=== PATIENT | male | born 1985 | race Hispanic/Latino ===

== ENCOUNTER 2023-03-31 07:11 | Emergency (ER) | payer SELFPAY ==
[2023-03-31 07:14] VITALS: BP 129/74; PULSE 79; RESP 18; TEMP 36.6; O2SAT 99
--- NOTE | 2023-03-31 09:29 | ED.SKABFB ---
HPI - Skin/Abscess/Foreign Bdy General Chief complaint: Skin/Abscess/Foreign Body Stated complaint: Rash Time Seen by Provider: 03/31/23 07:27 Source: patient and RN notes reviewed Mode of arrival: ambulatory Limitations: language barrier History of Present Illness HPI narrative: This is a 38 year old healthy male who presents for evaluation of rash. He states he developed rash on Tuesday . The rash started on his face, scalp and neck. He also has rash to his arms and chest. He works [employer] for a living so he thought rash was caused by poison colleen. He has been using a poison colleen spray without any relief. He denies fever, chills, cough, sore throat or runny nose. He is here with his brother who also has a rash. Related Data Allergies Allergy/AdvReac Type Severity Reaction Status Date / Time No Known Allergies Allergy Verified 03/31/23 07:41 Review of Systems Constitutional: Constitutional: Denies weakness Cardiovascular: Cardiovascular: Denies syncope, Denies rapid heart rate, Denies irregular heart rhythm, Denies leg edema and Denies dyspnea Respiratory: Respiratory: Denies chest congestion, Denies hemoptysis, Denies excessive phlegm production and Denies dyspnea Gastrointestinal: Gastrointestinal: Denies abdominal pain, Denies hematochezia, Denies diarrhea and Denies vomiting Genitourinary: Genitourinary: Denies hematuria, Denies dysuria, Denies penile discharge and Denies testicular pain Musculoskeletal: Musculoskeletal: Denies joint swelling, Denies loss of height and Denies muscle weakness Integumentary/Breasts: Skin/Breast: Reports rash Neurologic: Denies syncope, Denies focal weakness and Denies weakness PMFSH Past Medical History Medical History (Updated 03/31/23 @ 17:58 by Cindy Lozano MD) Patient denies medical problems Surgical History Surgical History (Updated 03/31/23 @ 17:58 by Cindy Lozano MD) No pertinent past surgical history Social History Social History (Updated 03/31/23 @ 17:58 by Cindy Lozano MD) Smoking status: Never smoker Exam Const: General: no acute distress and alert Nutritional Appearance: well nourished Orientation/consciousness: patient oriented x3 HENMT: Head: normal to inspection Mouth: Yes Normal oral and palatal mucosa present, Yes lip normal and Yes moist mucous membranes Throat: posterior oropharynx normal and uvula midline Other: no oral lesions Eyes: Pupils: Equal, round and reactive pupils present EOM: EOMs intact bilaterally Neck: Neck: normal visual inspection Chest: Chest palpation & inspection: normal inspection of the chest Resp: Effort & Inspection: normal respiratory effort Auscultation: clear to auscultation bilaterally Cardio: Rate: regular rate Rhythm: regular rhythm Heart sounds: no murmurs GI: Auscultation: normal bowel sounds Skin: General skin exam: rashes Rashes: rashes noted vesicles bilateral truncal Neuro: General: patient oriented x3, moves all extremities and CN's II-XI intact bilaterally Cranial nerves: Yes Nystagmus not present Speech: normal speech Course Reevaluation(s) Date: 03/31/23 Time: 10:34 Vital Signs Vital signs: Vital Signs Temperature 98 F 03/31/23 07:14 Pulse Rate 79 03/31/23 07:14 Respiratory Rate 18 03/31/23 07:14 Blood Pressure 129/74 03/31/23 07:14 Pulse Oximetry 99 03/31/23 07:14 Oxygen Delivery Room Air 03/31/23 07:14 Temperature 98 F 03/31/23 07:14 Pulse Rate 71 03/31/23 09:42 Respiratory Rate 18 03/31/23 09:42 Blood Pressure 107/89 03/31/23 09:42 Pulse Oximetry 100 03/31/23 09:42 Oxygen Delivery Room Air 03/31/23 07:14 MDM - Skin/Abscess/Foreign Bdy MDM Narrative Medical decision making narrative: I discussed with patient that rash likely viral rash. He is nontoxic appearing and he does not seem to have systemic systems so will discharge home. I discussed possible varicella. Unsure of vaccination history Diff
[2023-03-31 09:42] VITALS: BP 107/89; PULSE 71; RESP 18; O2SAT 100
== END 2023-03-31 10:54 | disposition home or self-care (01) ==
PROVIDERS: Emergency Provider General Practice
DX: B08.8 Other specified viral infections characterized by skin and mucous membrane lesions (principal)
CPT/HCPCS: 99283

== ENCOUNTER 2023-04-02 15:04 | Emergency (ER) | payer SELFPAY ==
[2023-04-02 15:05] VITALS: BP 114/78; PULSE 66; RESP 18; TEMP 36.4; O2SAT 98
--- NOTE | 2023-04-02 15:54 | ED.SKABFB ---
HPI - Skin/Abscess/Foreign Bdy General Chief complaint: Skin/Abscess/Foreign Body Stated complaint: pimples all over his body Time Seen by Provider: 04/02/23 15:09 History of Present Illness HPI narrative: Patient is a 38-year-old Czech-speaking male here for evaluation of a full body rash x 3 days. Patient reports itchy pimples on his face, arms, trunk and leg. Was seen here 2 days ago with unclear etiology, thought may be due to varicella and was placed on valacyclovir. Denies improvement with that medicine but denies worsening of the rash. Patient's brother was also in the ED for the same but he was admitted due to bandemia and fever. He was discharged home the next day with keflex, prednisone and benadryl and patient states his brother's rash has improved. Patient denies fevers, chills, nausea, vomiting, pain to pimples. He is unsure his vaccination status. No new medications, soaps, detergents. Related Data Allergies Allergy/AdvReac Type Severity Reaction Status Date / Time No Known Allergies Allergy Verified 04/02/23 15:05 Review of Systems Review of Systems: Gen: Denies fevers or chills Eyes: Denies eye pain or visual change ENT: Denies congestion Respiratory: Denies shortness of breath or cough CV: Denies chest pain or palpitations GI: Denies abdominal pain nausea, emesis or diarrhea : denies burning, urgency, frequency or hematuria Musculoskeletal: Denies back pain or muscle pain Neuro: Denies numbness, tingling, weakness or focal weakness Skin: Reports rash Except as documented, all other systems reviewed and negative [facility] Past Medical History Medical History Patient denies medical problems Surgical History Surgical History No pertinent past surgical history Social History Social History (Updated 03/31/23 @ 17:58 by Cindy Lozano MD) Smoking status: Never smoker Exam Narrative: APPEARANCE: No acute distress, nontoxic, resting in bed EYES: EOMI HEENT: Normocephalic, atraumatic, OMM RESPIRATORY: No respiratory distress Clear to auscultation bilaterally with no rhonchi wheezing or rales. CARDIOVASCULAR: Regular rate and rhythm without murmurs rubs or gallops. ABDOMINAL: Soft, nontender, nondistended, no rebound or guarding MUSCULOSKELETAl: Moves all extremities. No clubbing, cyanosis or edema. NEURO: Awake and alert. Following commands, speech normal, no focal deficits SKIN: there are numerous (too many to count, >100) erythematous papules on an erythematous base of various sizes to patients face, arms, trunk and legs. lesions measure 1 mm to 5 mm. >50% of the lesions have overlying pustules. nikolsky sign is negative. no involvement of the mucous membranes. PSYCHIATRIC: Normal affect/mood, Course Vital Signs Vital signs: Vital Signs Temperature 97.5 F L 04/02/23 15:05 Pulse Rate 66 04/02/23 15:05 Respiratory Rate 18 04/02/23 15:05 Blood Pressure 114/78 04/02/23 15:05 Pulse Oximetry 98 04/02/23 15:05 Oxygen Delivery Room Air 04/02/23 15:05 Temperature 97.5 F L 04/02/23 15:05 Pulse Rate 66 04/02/23 15:05 Respiratory Rate 18 04/02/23 15:05 Blood Pressure 114/78 04/02/23 15:05 Pulse Oximetry 98 04/02/23 15:05 Oxygen Delivery Room Air 04/02/23 15:05 MDM - Skin/Abscess/Foreign Bdy MDM Narrative Medical decision making narrative: 38 year old male here for evaluation of diffuse rash consistent of papules and pustules; seen here several days ago, denies relief after valacyclovir. Brother was admitted w/ similar symptoms due to bandemia and presence of fever and patient reports his rash has resolved after keflex and prednisone. Patient is non-toxic in appearance with normal vital signs. His basic labs are unremarkable; no leukocytosis. He is agreeable with plan for antibiotics, steroids and dermatology follow up; possible
[2023-04-02] MEDS: CEPHALEXIN 500 MG CAPSULE PO (16:18)
[2023-04-02] MEDS: diphenhydrAMINE HCl CAP 25 MG CAPSULE 50 MG PO (16:18)
[2023-04-02] MEDS: predniSONE 20 MG TABLET 40 MG PO (16:19)
[2023-04-02 16:34] LABS: Basophils Absolute Auto 0.1 K/mm3 (0.0-0.1); Basophils Percent Auto 0.8 % (0.2-1.2); Eosinophils Absolute Auto 0.1 K/mm3 (0-0.3); Eosinophils Percent Auto 1.6 % (0-4.4); Hematocrit 44.1 % (42.0-52.0); Immature Granulocyte Absolute 0.02 K/mm3 (0.00-0.031); Immature Granulocyte Percent A 0.3 % (0-0.5); Lymphocytes Absolute Auto 2.47 K/mm3 (0.9-3.2); Lymphocytes Percent Auto 40.6 % (18.3-44.2); Mean Corpuscular Hemoglobin 29.4 pg (26-34); Mean Corpuscular Volume 86.3 fl (80-100); Mean Platelet Volume 11.4 fl (7.4-10.4); Monocytes Absolute Auto 0.7 K/mm3 (0.1-0.6); Monocytes Percent Auto 10.8 % (2.6-8.5); Neutrophils Absolute Auto 2.8 K/mm3 (1.3-6.7); Neutrophils Percent Auto 45.9 % (45.5-73.1); Platelet Count Result 162 k/mm3 (150-375); Red Blood Count 5.11 M/mm3 (4.6-6.20); Red Cell Distribution Width 13.2 % (11.5-14.5); White Blood Count 6.1 K/mm3 (4.5-10.0)
[2023-04-02 16:43] LABS: Atypical Lymphocytes Present; Platelet Estimate Adequate (Adequate); Schistocytes None Seen (NORMAL)
[2023-04-02 16:45] LABS: Alanine Aminotransferase 83 U/L (6-50); Albumin Level 4.3 g/dL (3.5-5.1); Alkaline Phosphatase 85 U/L (38-126); Anion Gap 10 mmol/L (8-16); Aspartate Amino Transferase 52 U/L (17-59); Bilirubin,Total 0.4 mg/dL (0.2-1.3); Blood Urea Nitrogen 18 mg/dL (9-20); Calcium 8.4 mg/dL (8.4-10.2); Carbon Dioxide 25 mmol/L (22-30); Chloride 104 mmol/L (98-107); Estimated CRCL calculation 96 ml/min; Estimated Glomerular Filt Rate > 60; Glucose 98 mg/dL (65-110); Potassium 3.8 mmol/L (3.4-5.0); Sodium 139 mmol/L (137-145)
== END 2023-04-02 17:31 | disposition home or self-care (01) ==
PROVIDERS: Emergency Provider Physician Assistant
DX: L73.9 Follicular disorder, unspecified (principal)
CPT/HCPCS: 36415; 80053; 85025; 99283; A9270; J7512

== ENCOUNTER 2023-07-28 18:57 | Emergency (ER) | payer SELFPAY ==
--- NOTE | ~2023-07-28 | XR_ITS ---
EXAMINATION: XR chest 2V 07/28/2023 21:26 INDICATION: Shortness of breath PROCEDURE: PA and lateral views the chest COMPARISON: No prior studies for comparison. FINDINGS: The lungs are clear. The cardiomediastinal silhouette is within normal limits. There are no pleural effusions. There is no pneumothorax suspected. IMPRESSION: 1: NO ACUTE CARDIOPULMONARY DISEASE. Reviewed, dictated and finalized at location A.
[2023-07-28 19:00] VITALS: BP 111/82; PULSE 70; RESP 16; TEMP 36.6; O2SAT 100
[2023-07-28] MEDS: hydrOXYzine HCL 25 MG TABLET 50 MG PO (21:25)
[2023-07-28] MEDS: IBUPROFEN 400 MG TABLET 800 MG PO (21:25)
[2023-07-28 22:37] LABS: Influenza A QL RT-PCR Negative (Negative); Influenza B QL RT-PCR Negative (Negative); RSV RNA, RT-PCR Negative (Negative); SARS-CoV-2 RNA PCR Negative (Negative)
--- NOTE | 2023-07-28 23:05 | ECG_ITS ---
Measurements Intervals [place] Rate: 57 P: 25 ID: [id number] QRS: -35 QRSD: 118 T: 4 QT: 432 QTc: 423 Interpretive Statements SINUS BRADYCARDIA MARKED LEFT AXIS DEVIATION [QRS AXIS < -30] INCOMPLETE RIGHT BUNDLE BRANCH BLOCK [90+ ms QRS DURATION, TERMINAL R IN V1/V2, 40+ ms S IN I/aVL/V4/V5/V6] ABNORMAL ECG NO PREVIOUS ECG AVAILABLE FOR COMPARISON Electronically Signed On 07-29-2023 7:38:53 CDT by Dov Judd M.D.
--- NOTE | 2023-07-28 23:07 | PC.NURSE ---
Report from USMAN Beasley
[2023-07-28] MEDS: LORazepam (*CRX) 0.5 MG TABLET PO (23:11)
[2023-07-28 23:13] VITALS: BP 113/83; PULSE 59; RESP 16; TEMP 36.3; O2SAT 99
[2023-07-28 23:44] LABS: Basophils Absolute Auto 0.1 K/mm3 (0.0-0.1); Basophils Percent Auto 0.8 % (0.2-1.2); Eosinophils Absolute Auto 0.6 K/mm3 (0-0.3); Eosinophils Percent Auto 6.8 % (0-4.4); Hematocrit 42.8 % (42.0-52.0); Hemoglobin 14.7 g/dL (14.0-18.0); Immature Granulocyte Absolute 0.06 K/mm3 (0.00-0.031); Immature Granulocyte Percent A 0.7 % (0-0.5); Lymphocytes Absolute Auto 2.64 K/mm3 (0.9-3.2); Lymphocytes Percent Auto 29.9 % (18.3-44.2); Mean Corpuscular HGB Conc 34.3 g/dl (32-36); Mean Corpuscular Hemoglobin 29.7 pg (26-34); Mean Corpuscular Volume 86.5 fl (80-100); Mean Platelet Volume 11.9 fl (7.4-10.4); Monocytes Absolute Auto 0.8 K/mm3 (0.1-0.6); Monocytes Percent Auto 8.7 % (2.6-8.5); Neutrophils Absolute Auto 4.7 K/mm3 (1.3-6.7); Neutrophils Percent Auto 53.1 % (45.5-73.1); Platelet Count Result 218 k/mm3 (150-375); Red Blood Count 4.95 M/mm3 (4.6-6.20); White Blood Count 8.8 K/mm3 (4.5-10.0)
[2023-07-28 23:59] LABS: Alanine Aminotransferase 62 U/L (6-50); Albumin Level 4.5 g/dL (3.5-5.1); Alkaline Phosphatase 90 U/L (38-126); Anion Gap 8 mmol/L (8-16); Aspartate Amino Transferase 41 U/L (17-59); Bilirubin,Total 0.4 mg/dL (0.2-1.3); Blood Urea Nitrogen 16 mg/dL (9-20); Calcium 9.5 mg/dL (8.4-10.2); Carbon Dioxide 24 mmol/L (22-30); Chloride 106 mmol/L (98-107); Estimated CRCL calculation 110 ml/min; Estimated Glomerular Filt Rate > 60; Glucose 98 mg/dL (65-110); Potassium 3.7 mmol/L (3.4-5.0); Sodium 138 mmol/L (137-145)
[2023-07-29 00:32] LABS: Troponin I < 0.012 ng/mL (0.000-0.034)
[2023-07-29 01:02] VITALS: BP 115/64; PULSE 73; RESP 14; O2SAT 99
--- NOTE | 2023-07-29 04:07 | ED.GENADULT ---
HPI - General Adult General Chief complaint: Headache Stated complaint: HARD TIME BREATHING Time Seen by Provider: 07/28/23 20:22 Source: patient Mode of arrival: ambulatory Limitations: no limitations History of Present Illness HPI narrative: 38-year-old male presents today for what he stated was a headache but after assessment it seems to be in neck/back ache, shortness of breath. Patient denied any medical history at first but remembered he was seen in the past for similar episode and with anxiety. Some just chest discomfort with a large breath. Denies diaphoresis does endorse increased stressors at home. Denies sick contacts. Related Data Allergies Allergy/AdvReac Type Severity Reaction Status Date / Time No Known Allergies Allergy Verified 07/28/23 20:20 Review of Systems Review of Systems: All systems reviewed & are unremarkable except as noted in HPI and below PMFSH Past Medical History Medical History Patient denies medical problems Surgical History Surgical History No pertinent past surgical history Social History Social History Smoking status: Never smoker Exam Const: General: cooperative, healthy appearing, comfortable, no acute distress and well developed Orientation/consciousness: patient oriented x3 HENMT: Head: normal to inspection Eyes: General: appearance normal, both eyes and all related structures Resp: Effort & Inspection: normal respiratory effort and able to speak in complete sentences Auscultation: clear to auscultation bilaterally Cardio: Rate: regular rate Rhythm: regular rhythm Heart sounds: S1 normal heart sound present and S2 normal heart sound present Neuro: General: patient oriented x3 Course Vital Signs Vital signs: Vital Signs Temperature 97.8 F 07/28/23 19:00 Pulse Rate 70 07/28/23 19:00 Respiratory Rate 16 07/28/23 19:00 Blood Pressure 111/82 07/28/23 19:00 Pulse Oximetry 100 07/28/23 19:00 Oxygen Delivery Room Air 07/28/23 19:00 Temperature 97.3 F L 07/28/23 23:13 Pulse Rate 73 07/29/23 01:02 Respiratory Rate 14 07/29/23 01:02 Blood Pressure 115/64 07/29/23 01:02 Pulse Oximetry 99 07/29/23 01:02 Oxygen Delivery Room Air 07/28/23 19:00 Medical Decision Making MDM Narrative Medical decision making narrative: 38-year-old male HPI as noted. Original work-up to include COVID, chest x-ray and hydroxyzine and ibuprofen. COVID was negative, no improvement after the hydroxyzine. With patient now complaining of some chest discomfort with a deep breath. Additional work-up to include CBC, CMP, troponin, EKG. Work-up showed no concerning findings. Patient was given a lorazepam 0.5 mg once due to him having a ride at home. Patient noted improvement after this. Patient to follow-up with his primary care doctor after discharge for further management. Differential Diagnosis Differential Diagnosis: COVID, headache, chest pain Medical Records Medical records reviewed: Yes I reviewed the external patient's medical records. Vital Signs Vital Signs: Vital Signs Temperature 97.8 F 07/28/23 19:00 Pulse Rate 70 07/28/23 19:00 Respiratory Rate 16 07/28/23 19:00 Blood Pressure 111/82 07/28/23 19:00 Pulse Oximetry 100 07/28/23 19:00 Oxygen Delivery Room Air 07/28/23 19:00 Temperature 97.3 F L 07/28/23 23:13 Pulse Rate 73 07/29/23 01:02 Respiratory Rate 14 07/29/23 01:02 Blood Pressure 115/64 07/29/23 01:02 Pulse Oximetry 99 07/29/23 01:02 Oxygen Delivery Room Air 07/28/23 19:00 Lab Data Lab results reviewed: Yes I reviewed the patient's lab results. 07/28/23 23:31 07/28/23 23:31 Labs: Lab Results 07/28/23 07/28/23 Range/Units 21:27 23:31 WBC 8.8 (4.5-10.0) K/mm3 RBC 4
== END 2023-07-29 01:04 | disposition home or self-care (01) ==
PROVIDERS: Emergency Provider Nurse Practitioner Family
DX: R06.00 Dyspnea, unspecified (principal); Z20.822 Contact with and (suspected) exposure to COVID-19; R00.1 Bradycardia, unspecified; I45.10 Unspecified right bundle-branch block
CPT/HCPCS: 36415; 71046; 80053; 84484; 85025; 87637; 93005; 99284; A9270

== ENCOUNTER 2024-01-09 07:58 | Emergency (ER) | payer SELFPAY ==
[2024-01-09 08:03] VITALS: BP 109/87; PULSE 65; RESP 16; TEMP 36.8; O2SAT 100
[2024-01-09 08:34] LABS: Add Urine Microscopic? NO; Appearance Urine Clear (Clear); Bilirubin Urine Negative (Negative); Blood Urine Negative (Negative); Color Urine Yellow (Yellow); Glucose Urine UA Negative (Negative); Ketones Urine Negative (Negative); Nitrate Urine Negative (Negative); Protein Urine Negative (Negative); Specific Grav Ur 1.015 (1.001-1.035); pH Urine 7.5 (5.0-9.0)
[2024-01-09 08:35] LABS: Leukocyte Esterase Ur Negative LEU/UL (Negative); Urobilinogen Urine 0.2 mg/dL (<2.0)
--- NOTE | 2024-01-09 08:55 | ED.BACK ---
HPI - Back Pain/Injury General Chief Complaint: Back Pain/Injury Stated Complaint: back pain Time Seen by Provider: 01/09/24 08:45 History of Present Illness HPI Narrative: Pt presents with low back pain for a week. Pt denies specific injury but does a lot of lifting at work. Pt says it is worse when he's sitting and he drives a lot. Pt has some dysuria but no frequency or fever. Pt denies any discharge. Pt has no numbness or wekaness in legs and has no difficulties with controlling bladder or bowels. 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) Eyes: Conjunctivae: conjunctivae normal Pupils: Equal, round and reactive pupils present EOM: EOMs intact bilaterally Neck: Neck: normal visual inspection Resp: Effort & Inspection: normal respiratory effort Auscultation: clear to auscultation bilaterally Cardio: Rate: regular rate Rhythm: regular rhythm GI: GI Palp: Yes Soft to palpation Auscultation: normal bowel sounds : General: Yes bladder normal to palpation Back/Spine/Pelvis: Back: no CVA tenderness Other: tender right low p[araspinous muscles with spasm Skin: General skin exam: normal color Rashes: no rashes Neuro: General: patient oriented x3, moves all extremities, no meningeal signs and no focal motor deficits Speech: normal speech Extrem: General: normal to inspection and no clubbing, cyanosis or edema Psych: Mental Status: mental status grossly normal Affect: normal affect Attitude: cooperative Course Vital Signs Vital signs: Vital Signs Temperature 98.3 F 01/09/24 08:03 Pulse Rate 65 01/09/24 08:03 Respiratory Rate 16 01/09/24 08:03 Blood Pressure 109/87 01/09/24 08:03 Pulse Oximetry 100 01/09/24 08:03 Oxygen Delivery Room Air 01/09/24 08:03 Temperature 98.0 F 01/09/24 09:15 Pulse Rate 76 01/09/24 09:15 Respiratory Rate 16 01/09/24 09:15 Blood Pressure 110/70 01/09/24 09:15 Pulse Oximetry 100 01/09/24 09:15 Oxygen Delivery Room Air 01/09/24 08:03 MDM - Back Pain/Injury MDM Narrative Medical decision making narrative: with dysuria will check ua but back pain seems musculoskeletal. UA neg. will prescribe pyridium for dysuria and naprosyn and flexeril for back pain. Lab Data Labs: Lab Results 01/09/24 Range/Units 08:23 Urine Color Yellow (Yellow) Urine Appearance Clear (Clear) Urine pH 7.5 (5.0-9.0) Ur Specific [place] 1.015 (1.001-1.035) Urine Protein Negative (Negative) mg/dL Urine Glucose (UA) Negative (Negative) mg/dL Urine Ketones Negative (Negative) mg/dL Ur Blood (Man) Negative (Negative) Urine Nitrate Negative (Negative) Urine Bilirubin Negative (Negative) Urine Urobilinogen 0.2 (<2.0) mg/dL Leukocyte Esterase Rfl Negative (Negative) LINDA/UL Discharge Plan Discharge Clinical Impression: Strain of lumbar region, Dysuria Patient Disposition: Home, Self-Care Condition: Stable Instructions: Antibiotic Form, Acute Low Back Pain (ED) Prescriptions: New naproxen [Naprosyn] 500 mg tablet 500 mg PO BID Qty: 20 0RF cyclobenzaprine 10 mg tablet 10 mg PO TID Qty: 14 0RF phena
[2024-01-09 09:15] VITALS: BP 110/70; PULSE 76; RESP 16; TEMP 36.7; O2SAT 100
== END 2024-01-09 09:16 | disposition home or self-care (01) ==
LOC: ANHED 09:07
PROVIDERS: Emergency Provider Emergency Medicine
DX: S39.012A Strain of muscle, fascia and tendon of lower back, initial encounter (principal); R30.0 Dysuria; X50.0XXA Overexertion from strenuous movement or load, initial encounter
CPT/HCPCS: 81003; 99283

== ENCOUNTER 2025-05-31 06:43 | Emergency (ER) | payer SELFPAY ==
[2025-05-31] VITALS (7 sets, daily range): BP systolic 99–109; BP diastolic 72–84; PULSE 53–70; RESP 12–16; TEMP 37.1; O2SAT 99–100
--- NOTE | ~2025-05-31 | XR_ITS ---
EXAMINATION: XR chest 2V 05/31/2025 08:00 INDICATION: Dizziness. Unexplained weight loss. PROCEDURE: 2 view chest COMPARISON: 07/28/2023 FINDINGS: The lungs are clear. The cardiomediastinal silhouette is within normal limits. There are no pleural effusions. There is no pneumothorax suspected. IMPRESSION: 1: NO ACUTE CARDIOPULMONARY DISEASE. Reviewed, dictated and finalized at location A.
--- OUTSIDE RECORDS SUMMARY | 2025-05-31 06:45 | XMS_ITS | Clinical Summary ---
Author Organization [facility] Address [address] [place] [id number] Care Team Providers Care Ms Access Database Developer Name Role Phone Unknown, Notinfile Primary Care Provider Unavail able Allergies No known active allergies Encounters Date Type Department Care Team Description 05/29/2025 6:38 AM CDT - 05/29/2025 8:20 AM CDT Emergency [address] [address] Hakeem Wong MD Unintentional weight loss (Primary Dx) Discharge Disposition: Discharge to home or self care from Last 3 Months Social History Tobacco Use Types Packs/Day Years Used Date Smoking Tobacco: Never Tobacco Cessation:Counseling Given: Not Answered Personal Safety Answer Date Recorded Have you ever been in or are you currently in a harmful physical or emotional relationship or is someone making you feel afraid or unsafe? Denies 05/29/2025 Sex and Gender Information Value Date Recorded Sex Assigned at Not on file Legal Sex Male 4:58 AM CDT Gender Identity Not on file Sexual Orientation Not on file Obstetrics History Last Filed Vital Signs Vital Sign Reading Time Taken Comments Blood Pressure 113/79 05/29/2025 8:00 AM CDT Pulse 54 05/29/2025 8:00 AM CDT Temperature 36.6 C (97.9 F) 05/29/2025 4:59 AM CDT Respiratory Rate 20 05/29/2025 8:00 AM CDT Oxygen Saturation 100% 05/29/2025 8:00 AM CDT Inhaled Oxygen Concentration - - Weight 70.6 kg (155 lb 10.3 oz) 05/29/2025 5:05 AM CDT Height - - Body Mass Index - - Plan of Treatment Health Maintenance Due Date Last Done Comments Depression Screening 1983 Hepatitis C Screening 1983 DTaP/Tdap/Td Vaccine (1 - Tdap) 1994 Varicella Vaccines (1 of 2 - 13+ 2-dose series) 01/14/1996 Hepatitis B Screening 2001 Regular Well Visit/Exam 18-64 2001 HPV Vaccines (1 - 3-dose SCD M series) 2010 Influenza Vaccine (#1) 2025 Pneumococcal vaccine <65 Aged Out No longer eligible based on patient's age to complete this topic Procedures Procedure Name Priority Date/Time Associated Diagnosis Comments CT CHEST ABDOMEN PELVIS WO CONTRAST ED 05/29/2025 7:38 AM CDT ECG 12-LEAD STAT 05/29/2025 6:55 AM CDT THYROID FUNCTION CASCADE STAT 05/29/2025 6:55 AM CDT EGFR STAT 05/29/2025 6:55 AM CDT DIFFERENTIAL AUTO STAT 05/29/2025 6:5 5 AM CDT PHOSPHORUS STAT 05/29/2025 6:55 AM CDT MAGNESIUM STAT 05/29/2025 6:55 AM CDT PROTIME-INR STAT 05/29/2025 6:55 AM CDT TROPONIN T HIGH-SENSITIVITY SERIES (BASELINE, 2HR, 4HR, 6HR) STAT 05/29/2025 6:55 AM CDT COMPREHENSIVE METABOLIC PANEL STAT 05/29/2025 6:55 AM CDT CBC WITH AUTO DIFFERENTIAL STAT 05/29/2025 6:55 AM CDT from Last 3 Months Results * CT Chest Abdomen Pelvis WO Contrast (05/29/2025 7:38 AM CDT) Anatomical Region Laterality Modality Body N/A Computed Tomogra phy 05/29/2025 7:43 AM CDT Narrative 05/29/2025 7:51 AM CDT EXAM DESCRIPTION: CT CHEST ABDOMEN PELVIS WO CONTRAST REASON FOR STUDY: Sepsis, unintentional weight loss Patient states that he has been having a unintentional weight loss for the past 6 months. Patient denies any fevers or night sweats. Patient denies any chest pain abdominal pain. Patient states that he has mild back pain. TECHNIQUE: CT scan of the chest, abdomen, and pelvis performed without intravenous and without oral contrast using helical scanning technique. Reconstructed coronal and sagittal MPR images reviewed. All images stored on PACS. Automated exposure control was used as a dose optimization technique for this examination. COMPARISON: None. FINDINGS: The sensitivity for detection of visceral lesions is diminished without the use of intravenous contrast. CHEST LUNGS: Central airways are patent. No suspicious nodule or mass. No focal consolidation. Granulomatous calcification is seen. PLEURA: No pleural effusion or pneumothorax. MEDIASTINUM/ADA: No mediastinal or hilar mass. HEART: Heart size is normal. No pericardial effusion. CORONARY ARTERY CALCIFICATION: No significant coronary artery calcification. VASCULATURE CHEST: Ascending thoracic aorta nonaneurysmal. Descending thoracic aorta nonaneurysmal. AXILLA: No axillary lymphadenopathy. CHEST WALL: No chest wall mass or subcutaneous emphysema. HARDWARE/LINES/TUBES: None. MUSCULOSKELETAL CHEST: Bone windows demonstrate no acute or aggressive osseous abnormality. The vertebral body height and the alignment are normal. There is no aggressive osseous lesion. ABDOMEN/PELVIS Images through the abdomen are noisy, this may be due to motion artifact as well as a low mA. LIVER: Liver size and contour normal. No focal hepatic lesion. GALLBLADDER: Gallbladder is mildly distended. There are no gallstones seen and no overt inflammatory change. There is some limitation due to motion artifact. BILE DUCTS: No biliary ductal dilation. SPLEEN: Spleen size normal. No focal splenic lesion. PANCREAS: No pancreatic mass or inflammatory change. ADRENALS: Normal KIDNEYS/URINARY TRACT: No right renal calculus. No left renal calculus. No ureteral calculus. There is no hydronephrosis or hydroureter. There is fluid urinary bladder. No urinary bladder mass or calculus. GI: No evidence of bowel obstruction. The terminal ileum and the appendix are normal. Stomach and duodenum normal. No pneumatosis. PERITONEUM: No ascites or free air. No mesenteric mass or lymphadenopathy. RETROPERITONEUM: No retroperitoneal mass or lymphadenopathy. REPRODUCTIVE: No significant abnormalities. VASCULATURE ABDOMEN: Abdominal aorta is nonaneurysmal. MUSCULOSKELETAL ABDOMEN PELVIS: Bone windows demonstrate no acute or aggressive osseous abnormality. OTHER: No significant abnormality. IMPRESSION: 1. No evidence of an acute abnormality of the chest, abdomen, or pelvis. 2. No findings to explain weight loss. THIS IS AN ELECTRONICALLY VERIFIED FINAL REPORT 05/29/2025 7:51 AM - Electronically signed by Kem Guillen M.D. T: Report ID: [id number] Reading Location: [id number] Procedure Note Kem Guillen Jr., MD - 05/29/2025 EXAM DESCRIPTION: CT CHEST ABDOMEN PELVIS WO CONTRAST REASON FOR STUDY: Sepsis, unintentional weight loss Patient states that he has been having a unintentional weight loss for the past 6 months. Patient denies any fevers or night sweats. Patient deniesany chest pain abdominal pain. Patient states that he has mild back pain. TECHNIQUE: CT scan of the chest, abdomen, and pelvis performed without intravenous and without oral contrast using helical scanning technique. Reconstructed coronal and sagittal MPR images reviewed. All images storedon PACS. Automated exposure control was used as a dose optimizationtechnique for this examination. COMPARISON: None. FINDINGS: The sensitivity for detection of visceral lesions is diminished without the use of intravenous contrast. CHEST LUNGS: Central airways are patent. No suspicious nodule or mass. Nofocal consolidation. Granulomatous calcification is seen. PLEURA: No pleural effusion or pneumothorax. MEDIASTINUM/ADA: No mediastinal or hilar mass. HEART: Heart size is normal. No pericardial effusion. CORONARY ARTERY CALCIFICATION: No significant coronary arterycalcification. VASCULATURE CHEST: Ascending thoracic aorta nonaneurysmal. Descending thoracic aorta nonaneurysmal. AXILLA: No axillary lymphadenopathy. CHEST WALL: No chest wall mass or subcutaneous emphysema. HARDWARE/LINES/TUBES: None. MUSCULOSKELETAL CHEST: Bone windows demonstrate no acute or aggressive osseous abnormality. The vertebral body height and the alignment arenormal. There is no aggressive osseous lesion. ABDOMEN/PELVIS Images through the abdomen are noisy, this may be due to motion artifactas well as a low mA. LIVER: Liver size and contour normal. No focal hepatic lesion. GALLBLADDER: Gallbladder is mildly distended. There are no gallstonesseen and no overt inflammatory change. There is some limitation due to motion artifact. BILE DUCTS: No biliary ductal dilation. SPLEEN: Spleen size normal. No focal splenic lesion. PANCREAS: No pancreatic mass or inflammatory change. ADRENALS: Normal KIDNEYS/URINARY TRACT: No right renal calculus. No left renal calculus.No ureteral calculus. There is no hydronephrosis or hydroureter. There isfluid urinary bladder. No urinary bladder mass or calculus. GI: No evidence of bowel obstruction. The terminal ileum and theappendix are normal. Stomach and duodenum normal. No pneumatosis. PERITONEUM: No ascites or free air. No mesenteric mass orlymphadenopathy. RETROPERITONEUM: No retroperitoneal mass or lymphadenopathy. REPRODUCTIVE: No significant abnormalities. VASCULATURE ABDOMEN: Abdominal aorta is nonaneurysmal. MUSCULOSKELETAL ABDOMEN PELVIS: Bone windows demonstrate no acute or aggressive osseous abnormality. OTHER: No significant abnormality. IMPRESSION: 1. No evidence of an acute abnormality of the chest, abdomen, orpelvis. 2. No findings to explain weight loss. THIS IS AN ELECTRONICALLY VERIFIED FINAL REPORT 05/29/2025 7:51 AM - Electronically signed by Kem Guillen M.D. T: Report ID: [id number] Reading Location: [place] [address] Hakeem Wong MD IMG CT PROCEDURES F inal Result * ECG 12 lead (05/29/2025 6:55 AM CDT) Ventricular Rate EKG/Min 60 BPM [facility] Atrial Rate 60 BPM [facility] AZ-Interval (MSEC) 192 ms [facility] QRS-Interval (MSEC) 98 ms [facility] QT-Interval (MSEC) 464 ms [facility] QTc 464 ms [facility] P [place] 76 degrees [facility] R [place] -16 degrees [facility] T [place] 58 degrees [facility] Diagnosis Normal sinus rhythm with sinus arrhythmia Incomplete right bundle branch block Borderline ECG No previous ECGs available Confirmed by VAHE VILLANUEVA M.D. ([id number]) on 05/30/2025 5:44:11 PM [facility] 05/29/2025 6:55 AM CDT 05/30/2025 5:44 PM CDT us Hakeem Wong MD ECG ORDERABLES Fin al Result [facility] * Troponin T high-sensitivity series (baseline, 2hr, 4hr, 6hr) (05/29/2025 6:55 AM CDT) Trop T hs <6 <=22 ng/L Comment: Interpretive Data For further hscTnT resources including the diagnostic algorithm and an aid in interpretation, copy and paste this link: [email or web address].testcatalog.org/[email or web address] Current Interpretive Data last revised 2020. Blood 05/29/2025 6:55 AM CDT 05/29/2025 6:57 AM CDT us Hakeem Wong MD LAB BLOOD ORDERABLE S Final Result [facility] [address] [place] [address] * eGFR (05/29/2025 6:55 AM CDT) eGFR >90 >=60 mL/min/1. 73 m2 Comment: Interpretive Data Reference Interval Normal >/= 90 mL/min/1.73m2 Mildly decreased* 60 - 89 mL/min/1.73m2 Mildly to moderately decreased 45 - 59 mL/min/1.73m2 Moderately to severely decreased 30 - 44 mL/min/1.73m2 Severely decreased 15 - 29 mL/min/1.73m2 Kidney Failure < 15 mL/min/1.73m2 *Relative to young adult level Estimated glomerular filtration rate is determined by the 2020 CKD-EPI equation recommended by the National Kid[employer] (A Unifying Approach to GFR Estimation: Recommendations of the NKF-ASK Task Force on Reassessing the Inclusion of Race in Diagnosing Kidney Disease, JASN 202). The CKD-EPI equation should not be used for patients with unstable renal function and has not been validated in children and those over 70. Current interpretive data was last reviewed 2021. Blood 05/29/2025 6:55 AM CDT 05/29/2025 6:57 AM CDT us Hakeem Wong MD LAB BLOOD ORDERABLE S Final Result [place] [id number] [facility] [place] [address] * Differential, auto (05/29/2025 6:55 AM CDT) Neutrophil abs 2.94 1.50 - 6.50 K/cumm Imm gran abs 0.01 0.00 - 0.10 K/cumm [facility] Lymphocyte abs 1.66 0.80 - 3.30 K/cumm [facility] Monocyte abs 0.37 0.20 - 0.80 K/cumm [facility] Eosinophil abs 0.14 0.00 - 0.50 K/cumm [facility] Basophil abs 0.05 0.00 - 0.10 K/cumm [facility] Neutrophil pct 56.8 % [facility] Comment: Interpretive Data Percent cell count reference ranges are not reported, since discordance with absolute values may lead to misinterpretation of CBC data. Current Interpretive Data was last revised on 2018. Imm gran pct 0.2 % [facility] Comment: Interpretive Data Percent cell count reference ranges are not reported, since discordance with absolute values may lead to misinterpretation of CBC data. Current Interpretive Data was last revised on 2018. Lymphocyte pct 32.1 % [facility] Comment: Interpretive Data Percent cell count reference ranges are not reported, since discordance with absolute values may lead to misinterpretation of CBC data. Current Interpretive Data was last revised on 2018. Monocyte pct 7.2 % [facility] Comment: Interpretive Data Percent cell count reference ranges are not reported, since discordance with absolute values may lead to misinterpretation of CBC data. Current Interpretive Data was last revised on 2018. Eosinophil pct 2.7 % [facility] Comment: Interpretive Data Percent cell count reference ranges are not reported, since discordance with absolute values may lead to misinterpretation of CBC data. Current Interpretive Data was last revised on 2018. Basophil pct 1.0 % [facility] Comment: Interpretive Data Percent cell count reference ranges are not reported, since discordance with absolute values may lead to misinterpretation of CBC data. Current Interpretive Data was last revised on 2018. Blood 05/29/2025 6:55 AM CDT 05/29/2025 6:57 AM CDT Hakeem Wong MD LAB BLOOD ORDERABLE S Final Result Performing Organization Address [facility] de Phone Number [address] [place] [place] [address] * Thyroid Function [place] (05/29/2025 6:55 AM CDT) [facility] TSH 1.32 0.30 - 4.20 mcIUnit/mL Blood 05/29/2025 6:55 AM CDT 05/29/2025 6:57 AM CDT Hakeem Wong MD LAB BLOOD ORDERABLE S Final Result Performing Organization Address [facility] de Phone Number [address] [address] * CBC with auto differential (05/29/2025 6:55 AM CDT) [facility] WBC 5.17 3.80 - 9.90 K/cumm Hgb 14.4 13.0 - 17.5 g/dL [facility] Hct 42.5 38.9 - 50.3 % [facility] Plt 165 150 - 400 K/cumm [facility] MPV 11.8 9.1 - 12.3 fL [facility] RBC 4.79 4.30 - 5.80 M/cumm [facility] MCV 88.7 81.3 - 96.4 fL [facility] MCH 30.1 27.1 - 33.3 pg [facility] MCHC 33.9 32.3 - 35.7 g/dL [facility] RDW CV 13.0 11.1 - 14.9 % [facility] RDW SD 42.5 35.7 - 48.1 fL [facility] NRBC abs 0.00 0.00 - 0.01 K/cumm [facility] Blood 05/29/2025 6:55 AM CDT 05/29/2025 6:57 AM CDT Hakeem Wong MD LAB BLOOD ORDERABLE S Final Result Performing Organization Address [facility] de Phone Number [address] [place] [address] * Protime-INR (05/29/2025 6:55 AM CDT) PT 14.10 12.00 - 14.60 sec INR 1.08 0.90 - 1.20 [facility] Comment: Interpretive data Oral anticoagulant therapeutic ranges: Venous thromboembolism prophylaxis or treatment: 2.0-3.0 CARDIOLOGY Standard range: 2.0-3.0 High-intensity range: 2.5-3.5 Refer to indication-specific guidelines for appropriate target ranges for prosthetic heart valve replacement. Current interpretive data was last revised on 2019. Blood 05/29/2025 6:55 AM CDT 05/29/2025 6:57 AM CDT Hakeem Wong MD LAB BLOOD ORDERABLE S Final Result Performing Organization Address [facility] de Phone Number [address] [address] * Phosphorus (05/29/2025 6:55 AM CDT) Phosphorus, pl 3.6 2.3 - 4.5 mg/dL Blood 05/29/2025 6:55 AM CDT 05/29/2025 6:57 AM CDT Hakeem Wong MD LAB BLOOD ORDERABLE S Final Result Performing Organization Address [facility]/ZIP Co de Phone Number [facility] [place] [address] * Magnesium (05/29/2025 6:55 AM CDT) [facility] Magnesium 2.3 1.4 - 2.5 mg/dL Blood 05/29/2025 6:55 AM CDT 05/29/2025 6:57 AM CDT Hakeem Wong MD LAB BLOOD ORDERABLE S Final Result Performing Organization Address [facility] Co de Phone Number [address] [address] * (ABNORMAL) Comprehensive metabolic panel (05/29/2025 6:55 AM CDT) [facility] Sodium 141 135 - 145 mmol/L Potassium, pl 4.3 3.3 - 4.9 mmol/L [facility] Chloride 107 97 - 110 mmol/L [facility] CO2 23 22 - 32 mmol/L [facility] Anion gap 11 2 - 15 mmol/L [facility] BUN 11 6 - 25 mg/dL [facility] Creatinine 0.79(L) 0.80 - 1.30 mg/dL [facility] Glucose 97 70 - 199 mg/dL [facility] Comment: Interpretive Data Fasting glucose >/= 126 mg/dl is diagnostic for diabetes. Fasting is defined as no caloric intake for at least 8 hours. Fasting glucose between 100 mg/dl to 125 mg/dl is diagnostic of prediabetes. In a patient with classic symptoms of hyperglycemia or hyperglycemic crisis, a random glucose >/= 200 mg/dl is diagnostic for diabetes. In the absence of unequivocal hyperglycemia, results should be confirmed by repeat testing. The classification and Diagnosis of Diabetes Diabetes Care 202; 46: S19-S40. Current interpretive data was last revised 2022. Calcium 9.2 8.5 - 10.3 mg/dL [facility] Bilirubin, total 0.4 0.1 - 1.2 mg/dL [facility] Protein, pl 7.4 6.5 - 8.5 g/dL [facility] Albumin 4.3 3.5 - 5.0 g/dL [facility] Alk phos 76 40 - 130 Units/L [facility] ALT 10 7 - 55 Units/L [facility] AST 17 10 - 50 Units/L [facility] Blood 05/29/2025 6:55 AM CDT 05/29/2025 6:57 AM CDT us Hakeem Wong MD LAB BLOOD ORDERABLE S Final Result [facility] [address] [facility] Department [place] [address] from Last 3 Months Care Teams Ms Access Database Developer Relationship Specialty Start Date End Date Unknown, Notinfile PCP - General 05/29/25
--- NOTE | 2025-05-31 06:56 | ECG_ITS ---
Test Date: 2025-05-31 07:12:58 Measurements Intervals [place] Rate: 57 P: 67 SD: 198 QRS: -7 QRSD: 99 T: 52 QT: 436 QTc: 426 Interpretive Statements SINUS BRADYCARDIA INCOMPLETE RIGHT BUNDLE BRANCH BLOCK BORDERLINE ECG No previous ECG available for comparison Electronically Signed On 05-31-2025 08:11:28 CDT by Gm Myres D.O.
[2025-05-31 07:06] LABS: Hematocrit 42.8 % (42.0-52.0); Hemoglobin 14.2 g/dL (14.0-18.0); Immature Granulocyte Percent A 0.2 % (0-0.5); Lymphocytes Absolute Auto 1.94 K/mm3 (0.9-3.2); Mean Corpuscular HGB Conc 33.2 g/dl (32-36); Mean Corpuscular Hemoglobin 29.6 pg (26-34); Mean Corpuscular Volume 89.2 fl (80-100); Nucleated Red Blood Cells Absolute Auto 0.000 K/mm3 (0.0-0.012); Nucleated Red Blood Cells Perc 0.0 % (0.0-0.2); Platelet Count Result 193 k/mm3 (150-375); Red Blood Count 4.80 M/mm3 (4.6-6.20); White Blood Count 6.6 K/mm3 (4.5-10.0)
[2025-05-31] MEDS: LACTATED RINGERS 2,000 ML 999 ML IV CONT (07:23)
--- OUTSIDE RECORDS SUMMARY | 2025-05-31 07:33 | XMS_ITS | Clinical Summary ---
Author Organization [facility] Address [address] [place] [id number] Care Team Providers Care Manager Wound Care Name Role Phone Unknown, Notinfile Primary Care Provider Unavail able Allergies No known active allergies Encounters Date Type Department Care Team Description 05/29/2025 6:38 AM CDT - 05/29/2025 8:20 AM CDT Emergency [address] [address] Hakeem Wong MD Unintentional weight [...] by Kem Guillen M.D. T: Report ID: [id number] Reading Location: [id number] Procedure Note Kem Guillen Jr., MD - [...] by Kem Guillen M.D. T: Report ID: [id number] Reading Location: [place] [address] Hakeem Wong MD IMG CT PROCEDURES F inal Result * ECG 12 lead (05/29/2025 6:55 AM CDT) Ventricular Rate EKG/Min 60 BPM [facility] Atrial Rate 60 BPM [facility] TX-Interval (MSEC) 192 ms [facility] QRS-Interval (MSEC) 98 ms [facility] QT-Interval (MSEC) 464 ms [facility] QTc 464 ms [facility] P [place] 76 degrees [facility] R [place] -16 degrees [facility] T [place] 58 degrees [facility] Diagnosis Normal sinus rhythm with sinus arrhythmia Incomplete right bundle branch block Borderline ECG No previous ECGs available Confirmed by VAHE VILLANUEVA M.D. ([id number]) on 05/30/2025 5:44:11 PM [facility] 05/29/2025 6:55 AM CDT 05/30/2025 5:44 PM CDT us Hakeem Wong MD ECG ORDERABLES Fin al Result [facility] * Troponin T high-sensitivity series [...] LAB BLOOD ORDERABLE S Final Result [facility] [address] Department [place] [address] * eGFR (05/29/2025 6:55 AM CDT) eGFR [...] MD LAB BLOOD ORDERABLE S Final Result [place] [address] [facility] Department [place] [address] * Differential, auto (05/29/2025 6:55 AM CDT) Neutrophil abs 2.94 1.50 - 6.50 K/cumm Imm gran abs 0.01 0.00 - 0.10 K/cumm [facility] Lymphocyte abs 1.66 0.80 - 3.30 K/cumm [facility] Monocyte abs 0.37 0.20 - 0.80 K/cumm [facility] Eosinophil abs 0.14 0.00 - 0.50 K/cumm [facility] Basophil abs 0.05 0.00 - 0.10 K/cumm [facility] Neutrophil pct 56.8 % [facility] Comment: Interpretive Data Percent cell count reference ranges are not reported, since discordance with absolute values may lead to misinterpretation of CBC data. Current Interpretive Data was last revised on 2018. Imm gran pct 0.2 % [facility] Comment: Interpretive Data Percent cell count reference ranges are not reported, since discordance with absolute values may lead to misinterpretation of CBC data. Current Interpretive Data was last revised on 2018. Lymphocyte pct 32.1 % [facility] Comment: Interpretive Data Percent cell count reference ranges are not reported, since discordance with absolute values may lead to misinterpretation of CBC data. Current Interpretive Data was last revised on 2018. Monocyte pct 7.2 % [facility] Comment: Interpretive Data Percent cell count reference ranges are not reported, since discordance with absolute values may lead to misinterpretation of CBC data. Current Interpretive Data was last revised on 2018. Eosinophil pct 2.7 % [facility] Comment: Interpretive Data Percent cell count reference ranges are not reported, since discordance with absolute values may lead to misinterpretation of CBC data. Current Interpretive Data was last revised on 2018. Basophil pct 1.0 % [facility] Comment: Interpretive Data Percent cell count reference ranges are not reported, since discordance with absolute values may lead to misinterpretation of CBC data. Current Interpretive Data was last revised on 2018. Blood 05/29/2025 6:55 AM CDT 05/29/2025 6:57 AM CDT Hakeem Wong MD LAB BLOOD ORDERABLE S Final Result Performing Organization Address [facility] de Phone Number [address] [place] [address] * Thyroid Function [place] (05/29/2025 6:55 AM CDT) [facility] TSH 1.32 0.30 - 4.20 mcIUnit/mL Blood 05/29/2025 6:55 AM CDT 05/29/2025 6:57 AM CDT Hakeem Wong MD LAB BLOOD ORDERABLE S Final Result Performing Organization Address [facility] de Phone Number [address] [address] * CBC with auto differential (05/29/2025 6:55 AM CDT) [facility] WBC 5.17 3.80 - 9.90 K/cumm Hgb 14.4 13.0 - 17.5 g/dL [facility] Hct 42.5 38.9 - 50.3 % [facility] Plt 165 150 - 400 K/cumm [facility] MPV 11.8 9.1 - 12.3 fL [facility] RBC 4.79 4.30 - 5.80 M/cumm [facility] MCV 88.7 81.3 - 96.4 fL [facility] MCH 30.1 27.1 - 33.3 pg [facility] MCHC 33.9 32.3 - 35.7 g/dL [facility] RDW CV 13.0 11.1 - 14.9 % [facility] RDW SD 42.5 35.7 - 48.1 fL [facility] NRBC abs 0.00 0.00 - 0.01 K/cumm [facility] Blood 05/29/2025 6:55 AM CDT 05/29/2025 6:57 AM CDT Hakeem Wong MD LAB BLOOD ORDERABLE S Final Result Performing Organization Address [facility] de Phone Number [address] [place] [address] * Protime-INR (05/29/2025 6:55 AM CDT) PT [...] ORDERABLE S Final Result Performing Organization Address [facility] de Phone Number [address] [address] * Phosphorus (05/29/2025 6:55 AM CDT) Phosphorus, pl 3.6 2.3 - 4.5 mg/dL Blood 05/29/2025 6:55 AM CDT 05/29/2025 6:57 AM CDT Hakeem Wong MD LAB BLOOD ORDERABLE S Final Result Performing Organization Address [facility]/ZIP Co de Phone Number [facility] [place] [address] * Magnesium (05/29/2025 6:55 AM CDT) [facility] Magnesium 2.3 1.4 - 2.5 mg/dL Blood 05/29/2025 6:55 AM CDT 05/29/2025 6:57 AM CDT Hakeem Wong MD LAB BLOOD ORDERABLE S Final Result Performing Organization Address [facility] Co de Phone Number [address] [address] * (ABNORMAL) Comprehensive metabolic panel (05/29/2025 6:55 AM CDT) [facility] Sodium 141 135 - 145 mmol/L Potassium, pl 4.3 3.3 - 4.9 mmol/L [facility] Chloride 107 97 - 110 mmol/L [facility] CO2 23 22 - 32 mmol/L [facility] Anion gap 11 2 - 15 mmol/L [facility] BUN 11 6 - 25 mg/dL [facility] Creatinine 0.79(L) 0.80 - 1.30 mg/dL [facility] Glucose 97 70 - 199 mg/dL [facility] Comment: Interpretive Data Fasting glucose >/= 126 [...] 2022. Calcium 9.2 8.5 - 10.3 mg/dL [facility] Bilirubin, total 0.4 0.1 - 1.2 mg/dL [facility] Protein, pl 7.4 6.5 - 8.5 g/dL [facility] Albumin 4.3 3.5 - 5.0 g/dL [facility] Alk phos 76 40 - 130 Units/L [facility] ALT 10 7 - 55 Units/L [facility] AST 17 10 - 50 Units/L [facility] Blood 05/29/2025 6:55 AM CDT 05/29/2025 6:57 AM CDT us Hakeem Wong MD LAB BLOOD ORDERABLE S Final Result [facility] [address] [facility] [place] [address] from Last 3 Months Care Teams Manager Wound Care Relationship Specialty Start Date End Date Unknown, Notinfile PCP - General 05/29/25
[2025-05-31 07:42] LABS: Alanine Aminotransferase 16 U/L (6-50); Albumin Level 4.4 g/dL (3.5-5.1); Alkaline Phosphatase 69 U/L (38-126); Anion Gap 11 mmol/L (4-12); Aspartate Amino Transferase 29 U/L (17-59); Bilirubin,Total 0.5 mg/dL (0.2-1.3); Blood Urea Nitrogen 14 mg/dL (9-20); Calcium 9.5 mg/dL (8.4-10.2); Carbon Dioxide 25 mmol/L (22-30); Chloride 104 mmol/L (98-107); Estimated CRCL calculation 93 ml/min; Estimated Glomerular Filt Rate > 60; Glucose 97 mg/dL (65-110); Potassium 3.9 mmol/L (3.4-5.0); Sodium 140 mmol/L (137-145); Total Protein 7.9 g/dL (6.3-8.2)
--- NOTE | 2025-05-31 08:11 | ED_ITS ---
HPI - General Adult General Chief complaint: Dizziness Stated complaint: dizzy Time Seen by Provider: 05/31/25 06:59 History of Present Illness HPI narrative: Bel[place]ian speaking. Blueprint Machine Operator service used. This is a 40-year-old male presenting to ED with chief complaint of weight loss. Patient says he has lost 30 lb over the last 3 months. He has not been trying to lose weight. He says that he has been eating less than usual cuisine is not feel like eating. He is capable of eating but does not have the urge. He denies any other complaints. He is concerned that he might be diabetic as his last primary care visit 6 months ago he was prediabetic. He was seen at an outside hospital several days ago and discharged instruction to follow-up with primary care physician. He has appoint with his primary care physician next Tuesday. Related Data Home Medications ?Medication ?Instructions ?Recorded ?Confirmed ?Last Taken ?Type No Home Medications 05/31/25 05/31/25 Unknown History Allergies Allergy/AdvReac Type Severity Reaction Status Date / Time No Known Allergies Allergy Verified 05/31/25 06:55 PMFSH Past Medical History Medical History Patient denies medical problems Surgical History Surgical History No pertinent past surgical history Social History Social History Smoking status: Never smoker Exam 2 Narrative: APPEARANCE: No apparent distress. Well nourished Head: atraumatic. EYES: EOMI, NOSE: Atraumatic NECK: Trachea midline RESPIRATORY: No increased rate of breathing clear to auscultation CARDIOVASCULAR: RRR, no peripheral edema ABDOMINAL: Non-distended soft nontender MUSCULOSKELETAl: No obvious deformities NEURO: Alert. Moving 4/4 extremities SKIN:: Warm, dry. Normal color PSYCHIATRIC: Normal affect Course Vital Signs Vital signs: Vital Signs Temperature 98.7 F 05/31/25 06:46 Pulse Rate 60 05/31/25 06:46 Respiratory Rate 16 05/31/25 06:46 Blood Pressure 101/75 05/31/25 06:46 Pulse Oximetry 99 05/31/25 06:46 Oxygen Delivery Room Air 05/31/25 06:46 Temperature 98.7 F 05/31/25 06:46 Pulse Rate 65 05/31/25 06:56 Respiratory Rate 16 05/31/25 06:46 Blood Pressure 101/75 05/31/25 06:46 Pulse Oximetry 99 05/31/25 06:46 Oxygen Delivery Room Air 05/31/25 06:46 Medical Decision Making MDM Narrative Medical decision making narrative: -Course: 40-year-old male presenting with unintentional weight loss. He is concerned about diabetes. His A1c is 5.5. The rest was lab work was unremarkable. Further workup for weight loss can be performed by his primary care physician has appointment next Tuesday. Patient informed of results and discharged. -DDX includes but is not limited to: Diabetes, neoplasm, depression anxiety Vital Signs Vital Signs: Vital Signs Temperature 98.7 F 05/31/25 06:46 Pulse Rate 60 05/31/25 06:46 Respiratory Rate 16 05/31/25 06:46 Blood Pressure 101/75 05/31/25 06:46 Pulse Oximetry 99 05/31/25 06:46 Oxygen Delivery Room Air 05/31/25 06:46 Temperature 98.7 F 05/31/25 06:46 Pulse Rate 65 05/31/25 06:56 Respiratory Rate 16 05/31/25 06:46 Blood Pressure 101/75 05/31/25 06:46 Pulse Oximetry 99 05/31/25 06:46 Oxygen Delivery Room Air 05/31/25 06:46 Lab Data 05/31/25 06:58 05/31/25 06:58 Labs: Lab Results 05/31/25 Range/Units 06:58 WBC 6.6 (4.5-10.0) K/mm3 RBC 4.80 (4.6-6.20) M/mm3 Hgb 14.2 (14.0-18.0) g/dL Hct 42.8 (42.0-52.0) % MCV 89.2 (80-100) fl MCH 29.6 (26-34) pg MCHC 33.2 (32-36) g/dl RDW 13.0 (11.5-14.5) % Plt Count 193 (150-375) k/mm3 MPV 12.0 H (7.4-10.4) fl Immature Gran % (Auto) 0.2 (0-0.5) % Neut % (Auto) 60.3 (45.5-73.1) % Lymph % (Auto) 29.4 (18.3-44.2) % [place] % (Auto) 6.7 (2.6-8.5) % Eos % (Auto) 2.6 (0-4.4) % Baso % (Auto) 0.8 (0.2-1.2) % Lymph # (Auto) 1.94 (0.9-3.2) K/mm3 [place] # (Auto) 0.4 (0.1-0.6) K/mm3 Eos # (Auto) 0.2 (0-0.3) K/mm3 Baso # (Auto) 0.1 (0.0-0.1) K/mm3 Abs Immat Gran (auto) 0.01 (0.00-0.031) K/mm3 Absolute Neuts (auto) 4.0 (1.3-6.7) K/mm3 Absolute Nucleated RBC 0.000 (0.0-0.012) K/mm3 Nucleated RBC % 0.0 (0.0-0.2) % Sodium 140 (137-145) mmol/L Potassium 3.9 (3.4-5.0) mmol/L Chloride 104 (98-107) mmol/L Carbon Dioxide 25 (22-30) mmol/L Anion Gap 11 (4-12) mmol/L BUN 14 (9-20) mg/dL Creatinine 0.78 (0.7-1.3) mg/dL Estim Creat Clear Calc 93 ml/min Estimated GFR > 60 (59 - ) Glucose 97 (65-110) mg/dL Hemoglobin A1c 5.5 (<5.7) % Calcium 9.5 (8.4-10.2) mg/dL Total Bilirubin 0.5 (0.2-1.3) mg/dL AST 29 (17-59) U/L ALT 16 (6-50) U/L Alkaline Phosphatase 69 (38-126) U/L Total Protein 7.9 (6.3-8.2) g/dL Albumin 4.4 (3.5-5.1) g/dL Discharge Plan Discharge Clinical Impression: Unintentional weight loss Patient Disposition: Home Condition: Stable Instructions: Antibiotic Form, Weight Management (ED) Additional Instructions: You were seen in the emergency department for weight loss. Please follow-up with your primary care physician at your appointment next Tuesday. You hemoglobin A1C is 5.5%. You do not have diabetes. Patient Language: Bel[place]ian Prescriptions: No Action No Home Medications Follow-up/Referrals: PHYSICIAN,SHOE TRIMMER [Primary Care Provider] -
[2025-05-31 08:54] LABS: Hemoglobin A1C 5.5 % (<5.7)
== END 2025-05-31 10:35 | disposition home or self-care (01) ==
PROVIDERS: Student in an Organized Health Care Education/Training Program; Emergency Provider Emergency Medicine
DX: R63.4 Abnormal weight loss (principal); R73.03 Prediabetes; R00.1 Bradycardia, unspecified; I45.10 Unspecified right bundle-branch block; Z68.25 Body mass index [BMI] 25.0-25.9, adult
CPT/HCPCS: 36415; 71046; 80053; 83036; 85025; 93005; 96360; 96361; 99284; J7120